=== PATIENT | female | born 1995 | race Caucasian/White ===

== ENCOUNTER 2025-05-28 09:02 | Outpatient (AMB) | payer OTHER, SELFPAY ==
--- NOTE | 2025-05-28 09:05 | MHC.PC.OV ---
Vital Signs 05/28/25 09:13 Height 5 ft 6 in Weight 169 lb BMI 27.3 BP 110/64 Blood Pressure Location Rt brachial Position Sitting Respiration 16 Pulse 81 Pulse Source Pulse Oximeter Temp 98.2 F Temp Source Oral Pulse Oximetry (%) 98 Oxygen Delivery Method Room Air Intake Visit Reasons: anupama Dr Dubon /medication review Intake Note: anupama/ med review Coordinating Producer Required: No Allergies No Known Allergies Allergy (Verified 05/28/25 09:08) Medication List - Last Reconciled 05/28/25 by Tierra Hardin PA-C adapalene 0.3% (Differin) 1 appl topical QPM 30 days sertraline 100 mg PO DAILY 90 days Tobacco use date assessed: 05/28/25 Dental Screening Dental Screen Date: 05/28/25 Did you have a dental visit in the last 12 months?: No Did you have a dental problem in the last 6 months where you did not have access to dental care?: No Was dental information given to patient?: Yes HPI anupama Dr Dubon /medication review HPI Details Patient is a 29-year-old female who presents today to [facility]. She is transferring internally. She has a significant past medical history of anxiety and acne. Psych: On sertraline 100 mg daily. She has been on this approx 2012. No SI/HI. Plans to follow with on her own. Used to follow with a therapist in school. Works for [employer] right now. Derm: On Differin gel. States that this helps control acne. She would like to see derm for routine skin check Head Start Coordinator:overdue Fam hx: t2dm, htn PFSH Family History (Updated 05/28/25 @ 09:12 by Herminio Cox MA) Maternal Grandmother Hypertension Paternal Grandfather Diabetes Heart disease Paternal Grandmother Diabetes Father FH: mental illness Sister FH: mental illness Social History (Updated 05/28/25 @ 09:13 by Herminio Cox MA) Housing: Apartment Alcohol intake: current Comment: 1 drink every 2 months Patient Tobacco Use Status: Never used Tobacco e-Cigarette/Vaping Use: Never Used Second Hand Smoke Exposure: No Substance Use Type: Marijuana Substance Use Type Other:: recreational marijuana use service: No Current occupational status: employed and student Current occupation: therapist Current occupational exposures/hazards: No Cognitive needs: No Hearing needs: No Vision needs: No Questionnaire PHQ-9 Over the last 2 weeks, how often have you been bothered by any of the following problems? 1. Little interest or pleasure in doing things: not at all 2. Feeling down, depressed, or hopeless: not at all 3. Trouble falling or staying asleep, or sleeping too much: not at all 4. Feeling tired or having little energy: not at all 5. Poor appetite or overeating: not at all 6. Feeling bad about yourself - or that you are a failure or have let yourself or your family down: not at all 7. Trouble concentrating on things, such as reading the newspaper or watching television: not at all 8. Moving or speaking so slowly that other people could have noticed. Or the opposite - being so fidgety or restless that you have been moving around a lot more than usual: not at all 9. Thoughts that you would be better off or of hurting yourself in some way: not at all Total score: 0 Depression Screening Interpretation: Negative Depression Screening Done: Yes 50485 - PHQ-9 Billing: Yes Source: Developed by Drs. Denver Liz, Laura Brantley, Marcus Lopez and colleagues, with an educational thien from [employer] Thrive Questionnaire Date Thrive assessed: 08/04/22 I am a: Patient What is your living situation today?: I have a steady place to live Within the past 12 months, did the food you bought not last and you didn't have the money to get more?: Never true Within the past 12 months, did you worry whether your food would run out before you got money to buy more?: Never true Do you have trouble paying for medicines?: No Do you have trouble getting transportation to medical appointments?: No Do you have trouble paying your heating and electricity bill?: No Do you have trouble taking care of your child, family member or friend?: No Do you have trouble with day-to-day activities such as bathing, preparing meals, shopping, managing finances, etc.?: No Are you currently unemployed and looking for a job?: No Are you interested in more education?: No Please select the resources that you would like help with: None Currently or been in a relationship where the following occur: No concerns reported THRIVE Score: 0 AUDIT C Alcohol Use Questionnaire (AUDIT-C) 1. How often do you have a drink containing alcohol?: Monthly or less 2. How many drinks containing alcohol do you have on a typical day when you are drinking?: 1 or 2 3. How often do you have six or more drinks on one occasion?: Never Total Score: 1 Score Reviewed/Action Taken: Yes JEREMIE-7 AMB Questionnaire JEREMIE-7 Date JEREMIE - 7 assessed: 05/28/25 Feeling nervous, anxious, or on edge: 1 = Several days Not being able to stop or control worryin = Not at all Worrying too much about different things: 1 = Several days Trouble relaxin = Several days Being so restless that it is hard to sit still: 0 = Not at all Becoming easily annoyed or irritable: 0 = Not at all Feeling afraid as if something awful might happen: 0 = Not at all Total JEREMIE-7 score (0-4 normal; 5-9 mild; 10-14 moderate; 15-21 severe): 3 Source: Developed by Drs. Denver Liz, Laura Brantley, Marcus Lopez and colleagues, with an educational thien from [employer] JEREMIE-7 Assessment Billing JEREMIE-7 Assessment Tool: JEREMIE-7 Assessment 91515 Physical exam (Primary Care) Vital Signs: Last Vital Signs Temp 98.2 F 05/28/25 09:13 Pulse 81 05/28/25 09:13 Resp 16 05/28/25 09:13 BP 110/64 05/28/25 09:13 Pulse Ox 98 05/28/25 09:13 Oxygen Delivery Method Room Air 05/28/25 09:13 BMI result Body Mass Index 27.3 Tobacco/Smoking Status: Tobacco use Status Tobacco use date assessed 05/28/25 05/28/25 09:15 Patient Tobacco Use Status Never used Tobacco 05/28/25 09:15 e-Cigarette/Vaping Use Never Used 05/28/25 09:15 PHQ-9: PHQ-9 Score PHQ-9: Total score 0 05/28/25 09:15 Depression Screening Interpretation: Negative Thrive Assessment: Date of Thrive Assessment Date Thrive assessed 08/04/22 05/28/25 09:15 Currently or been in a relationship where the following occur: No concerns reported Const Orientation/consciousness: patient oriented x3 HENMT Ears: hearing grossly normal bilaterally Neck Thyroid: Thyroid normal Lymphatic: no lymphadenopathy noted Resp Auscultation: clear to auscultation bilaterally Cardio Rate: regular rate Rhythm: regular rhythm Heart sounds: S1 normal heart sound present and S2 normal heart sound present GI Inspection: Yes normal to inspection Palpation (GI): Soft to palpation and Other GI palpation findings present (nontender, no cva tenderness) Auscultation: normoactive bowel sounds Rectal Exam - Female: deferred Skin General skin exam: no rashes or lesions noted Neuro General: patient oriented x3, gait normal and no focal motor deficits Coding Level of Care Code New Pt Level 3 (97337) Complex EM visit Add On G2211 Diagnoses Acne L70.9 Anxiety F41.9 Additional Codes PHQ-9 - 51566 - PHQ-9 Billing: Yes ([id number]) JEREMIE-7 Assessment Billing - JEREMIE-7 Assessment Tool: JEREMIE-7 Assessment 71625 ([id number]) Assessment & Plan Assessment & Plan (1) Acne: Code(s): L70.9 - Acne, unspecified Category: Medical Plan: Refilled differin gel referral to derm. She will let me know if it is too long of a wait and we will consider a different location (2) Anxiety: Code(s): F41.9 - Anxiety disorder, unspecified Category: Medical Plan: Refilled sertraline She plans to follow with behavioral health on her own. Orders: Orders Complete Blood Count Auto Diff Today F41.9 - Anxiety disorder, unspecified, Z00.00 - Encounter for general adult medical examination without abnormal findings Lipid Panel Today F41.9 - Anxiety disorder, unspecified, Z00.00 - Encounter for general adult medical examination without abnormal findings Microalbumin, Random (w Creat) Today F41.9 - Anxiety disorder, unspecified, Z00.00 - Encounter for general adult medical examination without abnormal findings Comprehensive [place]. Panel Fast Today F41.9 - Anxiety disorder, unspecified, Z00.00 - Encounter for general adult medical examination without abnormal findings TSH reflex Free T4 Today F41.9 - Anxiety disorder, unspecified, Z00.00 - Encounter for general adult medical examination without abnormal findings UA CC w/rflx Micro + Cult Today F41.9 - Anxiety disorder, unspecified, R30.0 - Dysuria, Z00.00 - Encounter for general adult medical examination without abnormal findings Referrals Dermatology Referral L70.9 - Acne, unspecified, Z12.83 - Encounter for screening for malignant neoplasm of skin COMMUNITY HEALTH EDUCATION COORDINATOR Referral Z01.419 - Encounter for gynecological examination (general) (routine) without abnormal findings Medications: Refilled sertraline 100 mg PO DAILY 90 tabs 2RF 90 days adapalene 0.3% (Differin) 1 appl topical QPM 45 grams 2RF 30 days
[2025-05-28 09:13] VITALS: BP 110/64; PULSE 81; RESP 16; TEMP 36.8; O2SAT 98; BMI 27.3
== END 2025-05-28 09:42 | disposition home or self-care (01) ==
LOC: HO.HMCFM 09:03
PROVIDERS: PCP Nurse Practitioner Family; Visit Provider Physician Assistant
DX: L70.9 Acne, unspecified (principal); F41.9 Anxiety disorder, unspecified

== ENCOUNTER → 2025-05-28 09:02 | Outpatient (BNVA) | payer OTHER, SELFPAY | PROVIDERS: PCP Nurse Practitioner Family; Visit Provider Physician Assistant | DX: R30.0 Dysuria (principal); F41.9 Anxiety disorder, unspecified; L70.9 Acne, unspecified | CPT/HCPCS: 96127 ==